=== PATIENT | female | born 1965 | race Caucasian/White ===

== ENCOUNTER 2017-03-04 17:29 | Emergency (ER) | payer SELFPAY ==
[~2017-03-04] VITALS: Ht 175.3 cm; Wt 68.0 kg
[2017-03-04 17:31] VITALS: BP 123/84; PULSE 68; RESP 20; TEMP 97.7; O2SAT 97
[2017-03-04 20:35] VITALS: RESP 18; O2SAT 97
--- NOTE | 2017-03-04 20:41 | PD ---
HPI Chief Complaint: Chest Pain Time Seen by Provider: 20:24 Travel History International Travel<30 days: No Contact w/Intl Traveler<30days: No Traveled to known affect area: No History of Present Illness HPI Is a 52-year-old woman who presents emergent from complaining of chest pain and left arm pain it's been ongoing for a month and a half or so. She was seen at this, and again making a clinic. She reports a negative workup at [facility] including CT scan of her chest. She was treated with steroids and antibiotics for bronchitis or pulmonary infection. She states that the pain is been constant, is worse with, as well as getting worse with coughing or deep breathing. She also has pain radiating into the left arm. She has no history of coronary disease. Denies any past medical history. Does smoke about a half pack per day. No family history of early heart disease. No other complaints. History Past Medical History Medical History: Denies Significant Hx Tetanus Vaccination: Unknown Influenza Vaccination: No Past Surgical History Surgical History: No Previous Surgery Social History Alcohol Use: Yes (OCCASSIONALLY) Tobacco Use: Yes (1/2 PPD) Allergies-Medications (Allergen,Severity, Reaction): Coded Allergies: No Known Allergies (Unverified , 03/04/17) Reported Meds & Prescriptions Reported Meds & Active Scripts Active No Active Prescriptions or Reported Medications Review of Systems Except as stated in HPI: all other systems reviewed are Neg Physical Exam Narrative GENERAL: Well-appearing 52-year-old woman, no acute distress. SKIN: Focused skin assessment warm/dry. NECK: Trachea midline. No JVD. CARDIOVASCULAR: Regular rate and rhythm. No murmur appreciated. RESPIRATORY: No accessory muscle use. Clear to auscultation. Breath sounds equal bilaterally. GASTROINTESTINAL: Abdomen soft, non-tender, nondistended. Hepatic and splenic margins not palpable. MUSCULOSKELETAL: No obvious deformities. No clubbing. No cyanosis. No edema. NEUROLOGICAL: Awake and alert. No obvious cranial nerve deficits. Motor grossly within normal limits. Normal speech. PSYCHIATRIC: Appropriate mood and affect; insight and judgment normal. Data Data Last Documented VS Vital Signs Date Time Temp Pulse Resp B/P Pulse Ox O2 Delivery O2 Flow Rate FiO2 03/04/17 20:35 18 97 Room Air 03/04/17 20:23 80 03/04/17 17:31 97.7 123/84 Orders Electrocardiogram (03/04/17 ) Electrocardiogram (03/04/17 20:33) Complete Blood Count With Diff (03/04/17 20:33) Comprehensive Metabolic Panel (03/04/17 20:33) Magnesium (Mg) (03/04/17 20:33) Troponin I (03/04/17 20:33) Lipase (03/04/17 20:33) Ecg Monitoring (03/04/17 20:33) Iv Access Insert/Monitor (03/04/17 20:33) Oximetry (03/04/17 20:33) Oxygen Administration (03/04/17 20:33) Sodium Chloride 0.9% Flush (Ns Flush) (03/04/17 20:45) Chest, Pa & Lat (03/04/17 20:33) Labs Laboratory Tests Test 03/04/17 20:30 White Blood Count 4.3 TH/MM3 Red Blood Count 3.81 MIL/MM3 Hemoglobin 12.6 GM/DL Hematocrit 36.8 % Mean Corpuscular Volume 96.6 FL Mean Corpuscular Hemoglobin 33.0 PG Mean Corpuscular Hemoglobin 34.2 % Concent Red Cell Distribution Width 14.8 % Platelet Count 133 TH/MM3 Mean Platelet Volume 8.3 FL Neutrophils (%) (Auto) 49.2 % Lymphocytes (%) (Auto) 36.0 % Monocytes (%) (Auto) 9.1 % Eosinophils (%) (Auto) 4.8 % Basophils (%) (Auto) 0.9 % Neutrophils # (Auto) 2.1 TH/MM3 Lymphocytes # (Auto) 1.5 TH/MM3 Monocytes # (Auto) 0.4 TH/MM3 Eosinophils # (Auto) 0.2 TH/MM3 Basophils # (Auto) 0.0 TH/MM3 CBC Comment DIFF FINAL Differential Comment Sodium Level 141 MEQ/L Potassium Level 3.9 MEQ/L Chloride Level 106 MEQ/L Carbon Dioxide Level 24.8 MEQ/L Anion Gap 10 MEQ/L Blood Urea Nitrogen 3 MG/DL Creatinine 0.36 MG/DL Estimat Glomerular Filtration 190 ML/MIN Rate Random Glucose 88 MG/DL Calcium Level 8.0 MG/DL Magnesium Level 1.9 MG/DL Total Bilirubin 0.5 MG/DL Aspartate Amino Transf 227 U/L (AST/SGOT) Alanine Aminotransferase 63 U/L (ALT/SGPT) Alkaline Phosphatase 106 U/L Troponin I LESS THAN 0.02 NG/ML Total Protein 7.4 GM/DL Albumin 3.3 GM/DL Lipase 397 U/L [facility] Medical Decision Making Medical Screen Exam Complete: Yes Emergency Medical Condition: Yes Interpretation(s) My review of EKG: Normal sinus rhythm at a rate of 61, normal axis, normal intervals, no acute ischemia. LABS: CBC is unremarkable. CMP is unremarkable, AST ALT are both elevated Troponins negative Lipase 397 Chest x-ray: Negative Differential Diagnosis Bronchitis, PE, mass, pneumothorax, ACS, strain or sprain, pleurisy, other Narrative Course Medical decision making INITIAL: This is a 52-year-old woman who presents to the emergency department complaining of constant left-sided chest pain for the past 1-2 months, pleuritic , associated with cough, she has a history of tobacco use. This is likely pleurisy, strain or sprain, or pneumonia. With good be concerned about malignancy but reportedly had a negative CT scan of her wrist. We'll check x- ray, EKG, labs, reassess. Likely outpatient follow-up. FINAL: Left-sided chest pain. Doesn't appear to be cardiac. Previous workups also negative. She had a CT scan done as well that was negative. AST is elevated could suggest alcoholic hepatitis. We'll follow-up. Pain doesn't seem to be related to liver disease. Diagnosis Primary Impression: Chest pain Additional Impression: Abnormal liver enzymes Additional Instructions: Once he finished her steroids, take Naprosyn as needed for pain. Follow-up with her primary doctor for further evaluation of her chest pain and abnormal liver enzymes. Return to the emergency department for any new or worsening symptoms. Med/Other Pt SpecificInfo: Prescription(s) given Scripts Naproxen (Naprosyn)500 Mg Eul961 Mg PO BID PRN (PAIN SCALE 1 TO 10) #20 TAB Prov:Ethan Salazar MD 03/04/17 Disposition: 01 DISCHARGE HOME Condition: Stable Ethan Salazar MD Mar 04, 2017 20:41
[2017-03-04] MEDS ORDERED: SODIUM CHLORIDE 0.9% FLUSH 10 ML FLUSH IVF PRN (20:45)
--- NOTE | 2017-03-04 21:11 | RADRPT ---
EXAM DATE/TIME: 03/04/2017 20:49 [facility] COMPARISON: No previous studies available for comparison. INDICATIONS : Chest pain for 6 weeks MEDICAL HISTORY : None. SURGICAL HISTORY : None. ENCOUNTER: Initial ACUITY: 1 month PAIN SCORE: 5/10 LOCATION: Left chest FINDINGS: PA and lateral views of the chest demonstrate the lungs to be symmetrically aerated without evidence of mass, infiltrate or effusion. The cardiomediastinal contours are unremarkable. Osseous structure s are intact. CONCLUSION: No evidence of acute cardiopulmonary disease. Cecilio Li MD on March 04, 2017 at 21:09 Board Certified Radiologist. This report was verified electronically.
[2017-03-04 21:45] LABS: AUTOMATED NEUTROPHIL # 2.1 TH/MM3 (1.8-7.7); BASOPHIL % 0.9 % (0.0-2.0); EOSINOPHIL # 0.2 TH/MM3 (0-0.4); EOSINOPHIL % 4.8 % (0.0-4.0); HEMATOCRIT 36.8 % (35.0-46.0); HEMO FLAGS DIFF FINAL; LYMPHOCYTE # 1.5 TH/MM3 (1.0-4.8); MEAN CELL VOLUME 96.6 FL (80.0-100.0); MEAN CORPUSCULAR HGB CONC 34.2 % (32.0-36.0); MONO % 9.1 % (0.0-8.0); NEUT % 49.2 % (16.0-70.0); PLATELET COUNT 133 TH/MM3 (150-450); RED BLOOD COUNT 3.81 MIL/MM3 (4.00-5.30); RED CELL DISTRIBUTION WIDTH 14.8 % (11.6-17.2); WHITE BLOOD COUNT 4.3 TH/MM3 (4.0-11.0)
[2017-03-04 22:04] LABS: ANION GAP 10 MEQ/L (5-15); AST (GOT) 227 U/L (15-37); BICARBONATE 24.8 MEQ/L (21.0-32.0); BLOOD UREA NITROGEN 3 MG/DL (7-18); CHLORIDE 106 MEQ/L (98-107); GLOMERULAR FILTRATION RATE 190 ML/MIN (>89); MAGNESIUM 1.9 MG/DL (1.5-2.5); POTASSIUM 3.9 MEQ/L (3.5-5.1); SODIUM (NA) 141 MEQ/L (136-145)
[2017-03-04 22:05] LABS: ALT (GPT) 63 U/L (10-53)
[2017-03-04 22:09] LABS: ALKALINE PHOSPHATASE 106 U/L (45-117); TOTAL BILIRUBIN ADULT 0.5 MG/DL (0.2-1.0)
[2017-03-04] MEDS ORDERED: NAPR500 PO (22:21)
[2017-03-04 22:42] VITALS: BP 138/76
--- NOTE | 2017-03-05 14:56 | EKG ---
Date Performed: 03/04/2017 Time Performed: 17:52:41 PTAGE: 52 years EKG: Sinus rhythm NORMAL ECG NO PREVIOUS TRACING DOCTOR: Vinod Casillas Interpretating Date/Time 03/05/2017 14:55:45
== END 2017-03-04 22:43 | disposition home or self-care (01) ==
LOC: NEPE 17:29
DX: R07.9 Chest pain, unspecified (principal); R74.8 Abnormal levels of other serum enzymes; M79.602 Pain in left arm; F17.200 Nicotine dependence, unspecified, uncomplicated
CPT/HCPCS: 71020; 80053; 83690; 83735; 84484; 85025; 93005